=== PATIENT | female | born 1970 | race Caucasian/White ===

== ENCOUNTER 2020-08-10 13:04 | Emergency (ER) | payer OTHER, SELFPAY ==
[2020-08-10] MEDS ORDERED: Morphine 2 MG/ML VIAL ONE (13:40)
[2020-08-10] MEDS ORDERED: Morphine 4 MG/ML VIAL ONE (13:40)
[2020-08-10] MEDS ORDERED: Ketorolac Tromethamine 30 MG/ML VIAL ONE (13:41)
[2020-08-10] MEDS ORDERED: Dexamethasone 10 MG/ML VIAL ONE (13:41)
== END 2020-08-10 14:10 | disposition home or self-care (01) ==
LOC: BURERS 13:04
DX: M54.32 Sciatica, left side (principal); M25.552 Pain in left hip
CPT/HCPCS: 96372; 99283; J1100; J1885; J2270

== ENCOUNTER 2020-08-19 14:53 | Emergency (ER) | payer OTHER, SELFPAY ==
[2020-08-19 16:22] LABS: ALT (SGPT) 19 U/L (8-55); AST (SGOT) 15 U/L (5-34); Albumin 4.5 g/dL (3.5-5.0); Alkaline Phosphatase 58 U/L (40-110); Anion Gap 17 mmol/L (10-20); BUN (Urea Nitrogen) 15 mg/dL (7.0-18.7); Calc. Creatinine Clearance 0 mL/min (70-130); Carbon Dioxide 23 mmol/L (22-29); Chloride 103 mmol/L (98-107); Globulin 2.9 g/dL (2.4-3.5); Glucose 97 mg/dL (70-105); Hemoglobin 16.5 g/dL (12.0-16.0); Lipase 20 U/L (8-78); Mean Corpuscular HGB CONC 33.2 g/dL (32.0-36.0); Mean Corpuscular Hemoglobin 29.1 pg (27.0-31.0); Mean Corpuscular Volume 87.7 fL (78.0-98.0); Platelet Count 283 thou/uL (130-400); Potassium 3.6 mmol/L (3.5-5.1); Protein, Total 7.4 g/dL (6.0-8.3); RBC Distribution Width 11.7 % (11.5-14.5); Red Blood Cell (RBC) Count 5.66 mill/uL (4.20-5.40); Sodium 139 mmol/L (136-145); White Blood Cell (WBC) Count 10.2 thou/uL (4.8-10.8)
[2020-08-19] MEDS ORDERED: Aspirin Chewable 81 MG TAB ONE (16:28)
[2020-08-19] MEDS ORDERED: Ondansetron PF 4 MG/2 ML Vial ONE (16:28)
[2020-08-19 16:41] LABS: Band 1 % (5-11); Hypersemented Neutrophil SLIGHT; Lymphocytes 11 % (21-51); MDiff Complete? YES; Monocytes 4 % (0-10); Neutrophil 84 % (42-75)
[2020-08-19] MEDS ORDERED: Meclizine HCl 25 MG TAB ONE (16:42)
[2020-08-19 17:22] LABS: Bilirubin Negative (Negative); Blood, Urine Negative (Negative); Clarity Clear (Clear); Glucose, Urine (Dipstick) Negative (Negative); Ketone, Urine 15 mg/dL (Negative); Leukocyte Negative (Negative); Nitrite Negative (Negative); Protein, Urine (Dipstick) Negative (Neg-Trace); Specific Gravity, Urine 1.025 (1.005-1.030); Urobilinogen 0.2 mg/dL (Less than 2)
== END 2020-08-19 17:18 | disposition short-term general hospital (02) ==
LOC: BURERS 14:53
DX: R42 Dizziness and giddiness (principal); R11.2 Nausea with vomiting, unspecified; R29.705 NIHSS score 5; M19.90 Unspecified osteoarthritis, unspecified site
CPT/HCPCS: 70450; 71045; 80053; 81003; 83690; 84484; 85025; 93005; 96374; J2405